=== PATIENT | female | born 1955 | race Caucasian/White ===

== ENCOUNTER 2016-09-27 08:59 | Observation (INO) ==
[~2016-09-27 08:59] MED LIST: *HR* FentaNYL (PF) 100 MCG/2 ML VIAL ONE; *HR* Midazolam HCl 2 MG/2 ML VIAL ONE; *HR* Propofol 200 MG/20 ML VIAL IVP ONE; *HR* Succinylcholine 200 MG/10 ML VIAL IVP ONE; Dexamethasone 4 MG/ML VIAL ONE; Lidocaine -MPF 2% 2 ML VIAL ONE; Ondansetron 4 MG/2 ML VIAL ONE
[2016-09-27] MEDS ORDERED: Albuterol 2.5 MG/3 ML NEBULIZER IH ONE (09:22)
[2016-09-27] MEDS ORDERED: Famotidine 20 MG/2 ML VIAL IVP ONE (09:23)
[2016-09-27] MEDS ORDERED: Ringers Solution, Lactated 1,000 ML IVC SCH (09:30)
--- NOTE | 2016-09-27 09:31 | Anesthesia Evaluation PreOp ---
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: Other (Fibromyalgia) Other Medical History: Thyroid Anesthesia History: Past Anesthesia (Breast Lumpectomy), Problems (Laryngospasm post op requiring re-intubation) : No Alcohol Use: none Drug use: none Medications and Allergies Allergies acetaminophen [From Darvocet-N] Adverse Reaction (Verified 09/27/16 09:28) See Comments cefdinir Adverse Reaction (Verified 09/27/16 09:28) See Comments levofloxacin [From Levaquin] Adverse Reaction (Verified 09/27/16 09:28) See Comments metformin Adverse Reaction (Verified 09/27/16 09:28) See Comments propoxyphene [From Darvocet-N] Adverse Reaction (Verified 09/27/16 09:28) See Comments - Meds/Allergy Pre-op Review Medications Reviewed: Yes Allergies Reviewed: Yes Beta Blockers on Current Med List: No Anesthesia Results - Labs Laboratory Tests 09/11/16 09/11/16 13:28 13:28 Hgb 14.6 Hct 43.9 Plt Count 340 Sodium 143 Potassium 3.6 BUN 10 Creatinine 0.74 - Imaging EKG: pending Anesthesia Exam O2 Sat Height 1.65 m Weight 83.007 kg Height: 5'5 Weight: 183 lbs NPO (# of Hours): MN Pain Scale: 0 - HEENT Pupil (Motor): Pupils equal, EOMI Mallampati: III Teeth: Normal Oral Opening: Less than or equal to 3 - RESIDENT ASSISTANT CNA LOC: Oriented RESIDENT ASSISTANT CNA Motor: Normal RUE, Normal LUE, Normal RLE, Normal LLE, Normal Face RESIDENT ASSISTANT CNA Sensory: Normal: RUE, LUE, RLE, LLE, Face - Cardiac Rhythm: Regular Murmur: None JVD: No Carotid Bruit: No - Pulmonary Breath Sounds: bilateral Clear Respiratory Effort: Symmetrical Anesthesia Assess/Plan ASA Score: 3 (HTN RAMU COPD) Modified Katelynn Scale for Level of Consciousness: Cooperative, oriented, and tranquil Anesthetic Plan: General Monitoring Plan: Standard Monitors Recovery Plan: PACU (Discussed GA, agrees to proceed)
--- NOTE | 2016-09-27 10:29 | History & Physical Report ---
Date of Encounter: 09/27/16 Time of Encounter: 10:29 24 Hour HP Update - Instructions Instructions: If the History and Physical is less than 30 days old and was completed prior to A.M. admission and or procedure and has NOT been updated on calendar day of procedure please complete this update prior to performing procedure. - Update Patient reports changes in Medical Condition: No Changes in examination, assessment, or condition: No Changes in Medication: No Preop tests/diagnostics Reviewed: Yes Surgery Remains Indicated: Yes Consent for Planned Operative Procedure(s) Verified: Yes - Pre-Operative Checklist Preoperative Checklist Indicated: Yes Prophylactic Antibiotic Ordered: Yes Home Medications Include Beta Myriam: No Is VTE Prophylaxis Indicated?: Yes
[2016-09-27] MEDS ORDERED: MethylPREDNISolone 40 MG/ML VIAL ONE (10:30)
--- NOTE | 2016-09-27 10:31 | Discharge Summary ---
Outpatient Proc Discharge Plan - Plan Additional Instructions: 1. The patient can remove stent in 5 days by pulling on the string. 2. She should expect to feel flank pain with voiding. 3. The patient should call for any fevers, chills, nausea, emesis, or uncontrolled pain. 4. Please provide a work excuse if necessary for up to 1 week off. 5. She can follow up with me in 2 weeks. Prescriptions: HYDROcodone/Acet 10/325 mg [[place] 10-325 mg] 1 tab PO Q4HR PRN #25 tab PRN Reason: Pain Ketorolac Tromethamine 10 mg PO Q6HR PRN #20 tablet PRN Reason: Pain Docusate [Colace] 100 mg PO BID #60 capsule Phenazopyridine HCl [Pyridium] 200 mg PO TIDAC #12 tab Home Medications: Acetylcysteine [M-Uoyaih-g-Cysteine] 600 mg PO DAILY 09/27/16 [History] Ascorbic Acid [Vitamin C] 250 mg PO DAILY 09/27/16 [History] Cyanocobalamin (Vitamin B-12) [Vitamin B-12] 1,000 mcg SL DAILY 09/27/16 [ History] Docusate [Colace] 100 mg PO BID #60 capsule 09/27/16 [Rx] EPINEPHrine [Epipen] 0.3 mg IM ONCE PRN 09/27/16 [History] Ergocalciferol (VITAMIN D2) [Vitamin D] 400 unit PO DAILY 09/27/16 [History] Fluticasone/Salmeterol [Advair 250-50 Diskus] 1 puff IH BID 09/27/16 [History] HYDROcodone/Acet 10/325 mg [[place] 10-325 mg] 1 tab PO Q4HR PRN #25 tab 09/27/16 [Rx] HYDROcodone/Acet 5/325 mg [[place] 5-325 mg] 1 tab PO DAILY PRN 09/27/16 [History] Ketorolac Tromethamine 10 mg PO Q6HR PRN #20 tablet 09/27/16 [Rx] LORazepam [Ativan] 0.5 mg PO HS 09/27/16 [History] Lactobacillus Acidophilus [Acidophilus Probiotic] 1 mg PO DAILY 09/27/16 [ History] Levocarnitine Tartrate [l-Carnitine] 250 mg PO DAILY 09/27/16 [History] Levomefolate Calcium [l-Methylfolate] 2.5 mg PO DAILY 09/27/16 [History] Magnesium Oxide [Magnesium] 400 mg PO DAILY 09/27/16 [History] Phenazopyridine HCl [Pyridium] 200 mg PO TIDAC #12 tab 09/27/16 [Rx] Turmeric Root Extract [Turmeric] 500 mg PO DAILY 09/27/16 [History] Ubiquinol 100 mg PO DAILY 09/27/16 [History] Vitamin A 10,000 unit PO DAILY 09/27/16 [History] Vitamin E 100 unit PO DAILY 09/27/16 [History] Vitamin K2 40 mcg PO DAILY 09/27/16 [History] Zinc [Zinc Lozenge] 25 mg PO DAILY 09/27/16 [History] predniSONE [PredniSONE] 10 mg PO DAILY PRN 09/27/16 [History]
--- NOTE | 2016-09-27 10:34 | Operative Note ---
Date of procedure: 09/27/16 Pre-op diagnosis: Right renal stone Post-op diagnosis: same Procedure: Right ureteroscopy, laser lithotripsy, basket stone extraction, right ureteral stent placement. Implants: 4.8 Mexican by 26 cm double-J stent. Complications: None. Anesthesia: SWEETIEA Surgeon: Zak Morel Estimated blood loss (cc): 1 Specimen: right renal stone Condition: stable Disposition: PACU Procedure in Detail: Indications: Ju is a 61-year-old female who has a history of nephrolithiasis. A CT showed a right lower lower pole stone. She elected to undergo a right ureteroscopy, laser lithotripsy, and stent placement. She was aware of the risks of the procedure including but not limited to bleeding, infection, injury to other structures, need for further procedures, stent irritation, need for nephrostomy tube, need for open repair, risks otherwise unforeseen, and the risk of anesthesia. She is willing to proceed. Procedure in Detail: After informed consent was obtained the patient was brought back to the operating room and placed in supine position. A time out was performed. General anesthesia was administered and an LMA was placed. She was then placed in the lithotomy position. She was prepped and draped in the usual sterile fashion. Cystoscopy was performed. The anterior urethra was normal. There was no evidence of bladder tumors. The ureteral orifices were in the normal orthotopic position. There was no duplication of the ureteral orifices. The Zip wire was placed in the right ureteral orifice. The wire was then brought up into the kidney under fluoroscopic guidance. I then passed the 8/10 Mexican ureteral dilator. The inner obturator was removed and the sensor wire was placed. The flexible ureteroscope was then advanced into the kidney. A stone was seen in the upper pole calyx. There was a Mike' s plaque in the lower pole calyx. The stones were fractionated using 200 micron fiber. The stone fragments were then extracted using the 1.9 Mexican basket. The stone fragments were left in the bladder. It was easy to pass the ureteroscope up the ureter. Once all the stones were extracted, the ureteroscope was then removed and the pullout ureteroscopy showed no evidence of ureteral injury. A 4.8 Mexican by 26cm JJ stent was then placed. A good curl was seen in the kidney and the bladder. The dangle string was left intact and will be used through removed the stent at a later date. The patient was then awakened from general anesthesia and brought to recovery room in good condition. All sponge, needle, and instrument counts were correct.
[2016-09-27] MEDS ORDERED: Ketamine *HR* 500 MG/10 ML MDV ONE (10:35)
[2016-09-27] MEDS ORDERED: *HR* HYDROcodone/Acet 10/325 mg TABLET PO PRN (11:29)
[2016-09-27] MEDS ORDERED: *HR* HYDROmorphone (PF) 1 MG/ML SYRINGE IVP PRN ×2 (11:38→13:12)
[2016-09-27] MEDS ORDERED: Ondansetron 4 MG/2 ML VIAL IVP ONE (11:38)
[2016-09-27] MEDS ORDERED: *HR* Midazolam HCl 2 MG/2 ML VIAL IVP PRN (11:38)
[2016-09-27] MEDS ORDERED: *HR* Labetalol 20 MG/4 ML SYRINGE IVP PRN (12:03)
[2016-09-27] MEDS ORDERED: *HR* Belladonna Alkaloids/Opium 30 MG RECTAL SUPPOSITORY RC ONE (13:12)
[2016-09-27] MEDS ORDERED: Ketorolac 30 MG/ML VIAL IVP ONE (13:12)
[2016-09-27] MEDS ORDERED: Naloxone 0.4 MG/ML INJ IVP PRN ×2 (16:36)
[2016-09-27] MEDS ORDERED: predniSONE 10 MG TABLET PO PRN (16:36)
[2016-09-27] MEDS ORDERED: Ketorolac 30 MG/ML VIAL IVP PRN (16:36)
[2016-09-27] MEDS ORDERED: *HR* Morphine 30 MG/ 30 ML PCA IVC PRN (16:36)
[2016-09-27] MEDS ORDERED: *HR* Belladonna Alkaloids/Opium 30 MG RECTAL SUPPOSITORY RC PRN (16:36)
[2016-09-27] MEDS ORDERED: Ondansetron 4 MG/2 ML VIAL IVP PRN (16:36)
[2016-09-27] MEDS: Ringers Solution, Lactated 1,000 ML IVC SCH (17:36)
[2016-09-27] MEDS ORDERED: *HR* LORazepam 0.5 MG TABLET PO SCH (21:00)
[2016-09-27] MEDS ORDERED: Budesonide/Formoterol 80/4.5 MDI IH SCH (22:00)
[2016-09-28] MEDS ORDERED: *HR* HYDROmorphone (PF) 1 MG/ML SYRINGE IVP PRN (00:01)
[2016-09-28] MEDS: *HR* OxyCODONE/APAP 10/325 TABLET PO PRN ×2 (00:23→07:36)
[2016-09-28 06:59] VITALS: BP 150/85
[2016-09-28] MEDS: Ringers Solution, Lactated 1,000 ML IVC SCH (07:37)
--- NOTE | 2016-09-28 08:45 | Discharge Summary ---
Date of Encounter: 09/28/16 Time of Encounter: 08:42 - Discharge Diagnosis (1) Renal stone Priority: Primary Status: Resolved (2) Intractable abdominal pain Priority: Secondary Status: Resolved - Discharge Medications Prescriptions: OxyCODONE/APAP 10/325 [Percocet 10/325 MG] 1 each PO Q4HR PRN #30 tablet PRN Reason: Pain 4-6 Ketorolac [Toradol] 10 mg PO Q6HR PRN #30 tablet PRN Reason: Pain Phenazopyridine HCl [Pyridium] 200 mg PO TIDAC PRN #20 tab PRN Reason: burning with urination Home Medications: Acetylcysteine [Y-Fpgihu-z-Cysteine] 600 mg PO DAILY 09/27/16 [History] Ascorbic Acid [Vitamin C] 250 mg PO DAILY 09/27/16 [History] Cyanocobalamin (Vitamin B-12) [Vitamin B-12] 1,000 mcg SL DAILY 09/27/16 [ History] Docusate [Colace] 100 mg PO BID #60 capsule 09/27/16 [Rx] EPINEPHrine [Epipen] 0.3 mg IM ONCE PRN 09/27/16 [History] Ergocalciferol (VITAMIN D2) [Vitamin D] 400 unit PO DAILY 09/27/16 [History] Fluticasone/Salmeterol [Advair 250-50 Diskus] 1 puff IH BID 09/27/16 [History] LORazepam [Ativan] 0.5 mg PO HS 09/27/16 [History] Lactobacillus Acidophilus [Acidophilus Probiotic] 1 mg PO DAILY 09/27/16 [ History] Levocarnitine Tartrate [l-Carnitine] 250 mg PO DAILY 09/27/16 [History] Levomefolate Calcium [l-Methylfolate] 2.5 mg PO DAILY 09/27/16 [History] Magnesium Oxide [Magnesium] 400 mg PO DAILY 09/27/16 [History] Phenazopyridine HCl [Pyridium] 200 mg PO TIDAC #12 tab 09/27/16 [Rx] Turmeric Root Extract [Turmeric] 500 mg PO DAILY 09/27/16 [History] Ubiquinol 100 mg PO DAILY 09/27/16 [History] Vitamin A 10,000 unit PO DAILY 09/27/16 [History] Vitamin E 100 unit PO DAILY 09/27/16 [History] Vitamin K2 40 mcg PO DAILY 09/27/16 [History] Zinc [Zinc Lozenge] 25 mg PO DAILY 09/27/16 [History] predniSONE [PredniSONE] 10 mg PO DAILY PRN 09/27/16 [History] Ketorolac [Toradol] 10 mg PO Q6HR PRN #30 tablet 09/28/16 [Rx] OxyCODONE/APAP 10/325 [Percocet 10/325 MG] 1 each PO Q4HR PRN #30 tablet [Rx] Phenazopyridine HCl [Pyridium] 200 mg PO TIDAC PRN #20 tab 09/28/16 [Rx] Allergies/Adverse Reactions: Allergies cefdinir Adverse Reaction (Verified 09/27/16 09:28) See Comments levofloxacin [From Levaquin] Adverse Reaction (Verified 09/27/16 09:28) See Comments metformin Adverse Reaction (Verified 09/27/16 09:28) See Comments propoxyphene [From Darvocet-N] Adverse Reaction (Verified 09/27/16 09:28) See Comments - Impressions ITS Impressions Fluoroscopy 09/27/16 00:00 IMPRESSION: Intraprocedural fluoroscopic spot images as above. See separate procedure report for more information. D/ / 09/27/2016 13:11:13 Charles Andre MD / Ade Hale Interpreting Provider: Charles Andre MD X-Ray 09/27/16 00:00 IMPRESSION: Intraprocedural fluoroscopic spot images as above. See separate procedure report for more information. D/ / 09/27/2016 13:11:13 Charles Andre MD / Ade Hale Interpreting Provider: Charles Andre MD Date of admission: 09/27/16 16:27 Primary care physician: Andres Anthony MD Discharging clinician: Mele Hodgson Anticipated date of discharge: 05/27/17 - Patient Status Disposition: Home, Self-Care Condition: Good Functional capacity at discharge: independent ambulation Overall status at discharge: patient is progressing back to baseline - Discharge Instructions Instructions: Ureteral Stent Placement (DC) Follow Up With: Andres Anthony MD [Primary Care Provider] - Mele Hodgson MD [Partnered Physician] - (friday. Dr Beltre is the only provdier in the office that day. OK to come to the urology office at 1 PM) Additional Instructions: 1. The patient can remove stent at home by pulling on the string or come to the urology office at 1 PM friday. 2. She should expect to feel flank pain with voiding, urgency, frequency, burning, and blood in the urine. Ok to alternate toradol and percocet for pain relief. 3. The patient should call for any fevers (>101) 4. Please provide a work excuse if necessary for up to 1 week off. - Diet and Activity Activity: increase activity as tolerated Diet: advance to your usual diet - Hospital Course Hospital course: Ms. Munoz is a 61 year old female admitted after Dr Morel stone extraction yesterday with severe post op pain. controlled better this AM after stopping MANAGER BANQUET and starting percocet 10 mg q4h and toradol. pt is comfortable with discharge this AM - Time Spent with Patient Total time spent providing and/or coordinating discharge services: Greater than 30 minutes Exam Initial Vital Signs Temp Pulse Resp BP Pulse Ox 98.2 F 81 16 179/97 98 09/27/16 09:41 09/27/16 09:41 09/27/16 09:41 09/27/16 09:41 09/27/16 09:41 - General physical appearance Present: well developed, no distress
--- NOTE | 2016-10-01 18:35 | Electrocardiograph Report ---
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
== END 2016-09-28 09:35 | disposition home or self-care (01) ==
LOC: 3BNU 08:59 → SAMDAY 08:59
PROVIDERS: ADMIT Urology; ATTEND Urology